=== PATIENT | female | born 1945 | race Caucasian/White ===

== ENCOUNTER 2023-06-21 15:35 | Outpatient (CLI) | payer MEDICARE, OTHER ==
--- NOTE | 2023-06-21 16:29 | Sleep Patient Instructions ---
Sleep Center Visit Summary - Patient Visit Information Reason for Visit: Initial consult for evaluation of sleep disordered breathing and other sleep issues. - Patient Instructions Instructions Attached: Sleep Study Additional Instructions: You will be completing a sleep study, either an in-lab polysomnography (PSG) or home sleep study (HST). You will follow-up in the sleep care office after the sleep study is completed to hear the results and talk about therapy, if needed. You will be called by our office staff to schedule this appointment, but you may contact us with any questions. - Clinic Information Contact: [facility] [address] [place] [address] [email or web address] T: [phone]
--- NOTE | 2023-06-21 16:33 | SLEEP CARE CONSULTATION ---
Information from patient questionnaire entered by Patsy Harvey. I have reviewed and concur with the information entered by Patsy Harvey. This document represents the service I personally performed and the decisions made by me, Dannielle Farley ARNP. History of Present Illness Service Date and Time: 06/21/2023 1535 Reason for Visit: New patient, Previously diagnosed sleep apnea Chief Complaint: reports: Unrefreshed sleep, Snoring, Other (UPDATE SUPPLIES) Date of Onset: 10YRS Usual bedtime: 2AM Time it takes to fall asleep: NO TIME AT ALL Snores at night: Yes Sleeps alone due to snoring: Yes Number of times waking at night: NONE USUALLY Reasons for waking at night: reports: Other (UNKNOWN). denies: Choking, Gasping for air Toss, Turn, or Twitch while sleeping: Yes Recalls having dreams: Yes Usually gets out of bed at: 830AM Feels refreshed in the morning: No Morning headache: No Sleepy or fatigued during the day: Yes Ever fallen asleep while driving: No Takes day naps: Yes (lays down for 10 minutes but rarely falls asleep) Dreams during day naps: Yes Prior sleep studies: Yes Year and Where: [facility] Additional HPI information: I had the pleasure of seeing TRIP ENGLE today regarding the possibility of her having a sleep disorder. Her current complaints are snoring and unrefreshed sleep. She was previously diagnosed with sleep apnea and place on a CPAP . She has not been using her CPAP because parts broke on her mask, for the last 5 years. She feels like she needs more oxygen and her feet have more neuropathy. She is waking up with dry mouth in the morning. She would like to get back on her CPAP but needs supplies. - Parasomnia Symptoms Ever been unable to move upon waking from sleep: No Walks in sleep: No Talks in sleep: No Ever acted out dreams in sleep: No Ever felt weak in the knees when startled or emotional: Yes Bothered by creepy, crawly, restless sensations in legs: Yes Problems with memory or concentration: Yes (mostly memory) CPAP Compliance Data - Data Reviewed with Patient Average duration of nightly device use: 5 hours 45 minutes Compliance rate %: 90 (/30 days used in 2014, 11/05-12/04) Current pressure setting (cmH2O): 5-10 Average residual AHI: 1.2 Compliance data discussion: She has a ResMed Airsense 10. She was using a nasal mask, over the nose. She says her mask broke and she has not been able to use her machine for the last 5 years. 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 Patient is and lives in [place]. Have you smoked in the past 12 months: No Alcohol use: No Caffeine use: Yes Caffeine amount and frequency: 0-3 A DAY TEA Family History Family history of sleep disordered breathing: Yes Family Hx Sleep Apnea: Father: Snoring, Sleep apnea - Untreated Allergies and Home Medications Known drug allergies: No Drug allergies reviewed: Yes Home medication list reviewed: Yes Allergy and home medication list: Home Medications Medication Instructions Recorded Confirmed Last Taken Type Levothyroxine [Synthroid] See Rx Instructions .ROUTE .COMPLEX 06/21/23 06/21/23 Unknown History Liothyronine [Cytomel] See Rx Instructions .ROUTE .COMPLEX 06/21/23 06/21/23 Unknown History Multivitamin See Rx Instructions .ROUTE .COMPLEX 06/21/23 06/21/23 Unknown History [place]-3 Fatty Acids [[place]-3] See Rx Instructions .ROUTE .COMPLEX 06/21/23 06/21/23 Unknown History Phytonadione (Vit K1) [Vitamin K] See Rx Instructions .ROUTE .COMPLEX 06/21/23 06/21/23 Unknown History Ubidecarenone [Co Q-10] See Rx Instructions .ROUTE .COMPLEX 06/21/23 06/21/23 Unknown History Review of Systems Cardiovascular: denies: high blood pressure Gastrointestinal: denies: heartburn Psychiatric: denies: anxiety, depression Ear/Nose/Throat: denies: tonsillectomy Endocrine: reports: thyroid disease Physical Exam Vital signs obtained and entered by: PATSY Alfonso MA Blood Pressure: 118/76 (LEFT ARM) Cuff size: regular Heart Rate: 86 O2 Saturation: 98 Height: 5 ft 3.5 in Weight: 116 lb Body Mass Index: 20.2 BMI Classification: Normal Neck circumference: 13 Mouth and throat: narrow oropharynx Soft palate: long Hard palate: normal Uvula: normal Tongue: enlarged in size with teeth castro on lateral edges Tonsils: small Neck: normal w/o lymphadenopathy or thyromegaly Heart: regular rate and rhythm Lungs: clear bilaterally Impression and Plan 1. Suspected Obstructive Sleep Apnea-Hypopnea Syndrome, as previously diagnosed and as suggested by a history of loud and irregular snoring, morning headache, unrefreshed sleep and cognitive impairment. Narrow oropharynx and obesity are common predisposing factors for obstructive sleep apnea-hypopnea syndrome. I recommend proceeding to polysomnography to confirm the diagnosis and to assess severity. If the patient has significant sleep disordered breathing, a manual CPAP titration study will also be performed to find the optimal treatment pressure. I informed the patient of what the sleep studies involve and after some discussion, obtained agreement to proceed. The pathophysiology of obstructive sleep apnea-hypopnea syndrome was discussed with the patient and health risks of cardiovascular and cerebrovascular disease if not treated. Risks of drowsy driving discussed in detail and patient advised to avoid long distance driving and to hide puller at the first sign of drowsiness. Patient agreed to plan. * Schedule polysomnography +- manual CPAP titration study and return in 1-2 weeks after the study to discuss result and initiate therapy. * Avoid long distance driving or driving when feeling sleepy. * Avoid alcohol, sedative and muscle relaxant around bedtime. * Attempt to lose weight. * Review instructions provided by trained office staff on how to prepare for the sleep study. * Return for follow-up after sleep study completed. Plan: PSG Visit Type: In Office Time Spent with Patient (minutes): 38 Provider Statement: I spent 100% of the Face to Face Visit with the patient with greater than 50% spent counseling the patient and coordination of care.
[2023-06-21 16:41] VITALS: BP 118/76; O2SAT 98
== END 2023-06-21 15:36 | disposition home or self-care (01) ==
LOC: SC 15:35
PROVIDERS: ATTEND Nurse Practitioner Family
DX: G47.33 Obstructive sleep apnea (adult) (pediatric) (principal)
CPT/HCPCS: 99203; G0463; 99212

== ENCOUNTER 2023-12-15 19:57 | Outpatient (CLI) | payer MEDICARE, OTHER | END 2023-12-15 19:58 | disposition home or self-care (01) | LOC: SC 19:57 | PROVIDERS: ATTEND Nurse Practitioner Family | DX: G47.33 Obstructive sleep apnea (adult) (pediatric) (principal); G47.61 Periodic limb movement disorder | CPT/HCPCS: 95810 ==

== ENCOUNTER 2024-01-09 13:30 | Outpatient (CLI) | payer MEDICARE, OTHER ==
--- NOTE | 2024-01-09 14:11 | Sleep Patient Instructions ---
Sleep Center Visit Summary - Patient Visit Information Reason for Visit: Sleep study follow-up - Patient Instructions Additional Instructions: You are being started on CPAP therapy with pressure setting at 5-10 cmH2O. You will need to call the sleep care office to set up your follow up once you have your CPAP machine to check compliance and response to therapy at that time. You may call the office with any concerns about pressure feeling too low or too much for adjustment, if needed. You should contact DME supplier for any questions or concerns about mask or equipment. Please call office to schedule a follow up appointment in the sleep care office one month after obtaining new device. - Clinic Information Contact: [facility] [address] [place] [address] [email or web address] T: [phone]
[2024-01-09 14:19] VITALS: BP 118/76; O2SAT 100
--- NOTE | 2024-01-09 14:19 | SLEEP CARE CONSULTATION ---
Information from patient questionnaire entered by Vani Harvey. I have reviewed and concur with the information entered by Vani Harvey. This document represents the service I personally performed and the decisions made by , Dannielle Farley ARNP. History of Present Illness Service Date and Time: 01/09/2024 1330 Initial [place] Sleepiness Scale score: 6 (06/21/23) Current [place] Sleepiness Scale score: 4 (01/09/24) Additional HPI information: TRIP ENGLE returns for follow up and results of the recently performed polysomnography. The sleep study done on 12/15/23 showed mild obstructive sleep apnea with an average AHI of 12.2 and shan oxygen saturation of 83%. She had severe PLMs that did not contribute to sleep fragmentation. I explained the pathophysiology behind obstructive sleep apnea. We then spent quite a bit of time discussing different treatment options. For mild obstructive sleep apnea, surgery and oral appliance are alternatives to nasal CPAP therapy but in moderate or severe cases, nasal CPAP is the most effective and reliable treatment. After some discussion, the patient opted to continue with the nasal CPAP therapy. Nasal autoCPAP will be set at 5-10 cmH20 will be ordered with rationale explained. Patient does not drink alcohol. Patient was cautioned about risks of drowsy driving until sleepiness symptoms resolve. Patient denies drowsy driving. Sleep Study - Results Type of Sleep Study: Polysomnography (COMPLETED 12/15/23) Prior sleep studies: Yes Year and Where: [facility] Polysomnography/Home Sleep Study results: IMPRESSION: The quality of the study is good. The patient had normal sleep efficiency. The sleep architecture was abnormal for sleep fragmentation and reduced amount of time spent in slow wave sleep (N3). Respiratory monitoring showed mild obstructive sleep apnea-hypopnea (AHI = 12.2) associated with frequent arousals, oxyhemoglobin desaturation and mild hypoxia (shan oxygen saturation of 83%). The respiratory events occurred mainly during REM sleep. The patient only slept supine during this study (supine AHI = 12.2; non-supine = 0.00). Snore was light to loud in intensity. There was severe periodic leg movement of sleep not contributing to the sleep fragmentation. Cardiac rhythm was normal sinus rhythm without significant arrhythmia. No abnormal behavior (parasomnia) observed during the night. Allergies and Home Medications Known drug allergies: No Drug allergies reviewed: Yes Home medication list reviewed: Yes (no changes) Allergy and home medication list: Allergies No Known Drug Allergies Allergy (Verified 01/07/24 11:21) Review of Systems Review of systems same as previous: Yes (NO CHANGE) Physical Exam Vital signs obtained and entered by: VANI Alfonso MA Blood Pressure: 118/76 (LEFT ARM) Cuff size: SMALL ADUL Heart Rate: 88 O2 Saturation: 100 Height: 5 ft 3.5 in Weight: 114 lb 3.2 oz Body Mass Index: 19.9 BMI Classification: Normal Impression and Plan 1. Obstructive Sleep Apnea-Hypopnea Syndrome, mild, with lowest oxygen saturation of 83%. Obviously this is the cause of the patients symptoms of unrefreshed sleep, and excessive daytime sleepiness. As mentioned above, the patient will be continued on nasal autoCPAP therapy with pressure set at 5-10 cmH2O. She was previously on a CPAP with her settings at 5-10 cm H2O with good control of her sleep apnea and so I will start her with this setting on her new CPAP. Compliance guidelines also reviewed. A copy of compliance guidelines will be given for reference at check out. 2. Hypoxemia, mild, with a shan oxygen saturation of 83% and 2.5 minutes spent under 90%. The baseline oxygen saturation was normal with an average oxygen saturation of 94%. 3. Periodic limb movement, severe, that did not fragment patients sleep. Periodic limb movement of sleep (PLMS) is characterized by episodes of repetitive limb movements that occur during sleep and usually involve the lower limbs. The etiology is unknown. Patient was advised that no treatment is needed at this time. If symptoms increase, then further evaluation is indicated. * Nasal auto CPAP therapy, pressure at 5-10 cmH2O. * The patient is again cautioned about driving until sleepiness completely r esolves. * Return one month after CPAP obtained. I will assess response to therapy and compliance at that time. Prescriptions: Auto CPAP Plan: restart CPAP and compliance follow up Visit Type: In Office Time Spent with Patient (minutes): 25 Provider Statement: I spent 100% of the Face to Face Visit with the patient with greater than 50% spent counseling the patient and coordination of care.
== END 2024-01-09 13:31 | disposition home or self-care (01) ==
LOC: SC 13:30
PROVIDERS: ATTEND Nurse Practitioner Family
DX: G47.33 Obstructive sleep apnea (adult) (pediatric) (principal); R09.02 Hypoxemia; G47.61 Periodic limb movement disorder
CPT/HCPCS: 99213; G0463; 99212